=== PATIENT | female | born 1980 | race Caucasian/White ===

== ENCOUNTER → 2018-05-13 | Day surgery (SDC) | payer OTHER ==
[~2018-05-13] MED LIST: Bupivacaine 0.25% 30 ML SDV ONE; Lactated Ringers 1,000 ML IV SCH; Lidocaine 1% 30 ML SDV ONE; Lidocaine 1% 4 ML ONE; Lidocaine 1%/Sod Bicarbonate in NS 8.4% 1 ML Syringe IDERM PRN; Midazolam 1 MG/ML 2 ML SDV ONE; Ondansetron 4 MG/2 ML SDV ONE; Propofol 200 MG/20 ML SDV ONE; Sodium Chloride 0.9% 10 ML Syringe FLUSH PRN; fentaNYL 100 MCG/2 ML SDV ONE
--- NOTE | 2018-05-13 06:54 | PCM.PREANE ---
Preanesthetic Assessment - Anesthesia/Transfusion/Family Hx Anesthesia History: Prior Anesthesia Without Reaction Family History of Anesthesia Reaction: No Transfusion History: No Prior Transfusion(s) - Review of Systems General: No Symptoms Pulmonary: Cough (smokers) Cardiovascular: No Symptoms Gastrointestinal: No Symptoms Neurological: No Symptoms Other: Reports: Easy Bruising, Liver Problems (hep C) - Physical Assessment NPO Status Date: 05/12/18 NPO Status Time: 23:50 Pulse: 77 O2 Sat by Pulse Oximetry: 94 Respiratory Rate: 16 Blood Pressure: 114/87 Temperature: 36.6 C Vital Signs: Last Vital Signs Temp 36.6 C 05/13/18 06:44 Pulse 77 05/13/18 06:44 Resp 16 05/13/18 06:44 BP 114/87 05/13/18 06:44 Pulse Ox 94 L 05/13/18 06:44 Height: 1.55 m Weight: 76 kg ASA Class: 2 Mental Status: Alert & Oriented x3 Airway Class: Mallampati = 1 Dentition: Reports: Normal Dentition Thyro-Mental Finger Breadths: 3 Mouth Opening Finger Breadths: 3 ROM/Head Extension: Full Lungs: Clear to Auscultation, Normal Respiratory Effort Cardiovascular: Regular Rate, Regular Rhythm, No Murmurs - Lab Values: Laboratory Last Values Urine HCG, Qual Negative (NEGATIVE) 05/13/18 06:25 MRSA (PCR) Negative 05/11/18 11:09 - Allergies Allergies/Adverse Reactions: Allergies Allergy/AdvReac Type Severity Reaction Status Date / Time morphine AdvReac Nausea and Verified 05/12/18 13:45 Vomiting - Blood Blood Available: No Product(s) Available: None - Anesthesia Plan Pre-Op Medication Ordered: None - Acknowledgements Anesthesia Type Planned: MAC Pt an Appropriate Candidate for the Planned Anesthesia: Yes Alternatives and Risks of Anesthesia Discussed w Pt/Guardian: Yes Pt/Guardian Understands and Agrees with Anesthesia Plan: Yes PreAnesthesia Questionnaire HEENT History: Reports: Impaired Vision, Other (See Below) Other HEENT History: wears glasses Cardiovascular History: Reports: None Respiratory History: Reports: Asthma Gastrointestinal History: Reports: None, Hepatitis Genitourinary History: Reports: None 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 (See Below) Other OB/BYN History: breast surgeyr for fibroid tumor Musculoskeletal History: Reports: Other (See Below) Other Musculoskeletal History: bilateral carpal tunnel syndrome Neurological History: Reports: None Psychiatric History: Reports: None Endocrine/Metabolic History: Reports: None Hematologic History: Reports: None Immunologic History: Reports: None Oncologic (Cancer) History: Reports: None Dermatologic History: Reports: None - Past Surgical History Head Surgeries/Procedures: Reports: None HEENT Surgical History: Reports: None Cardiovascular Surgical History: Reports: None Respiratory Surgical History: Reports: None GI Surgical History: Reports: None Female Surgical History: Reports: None Male Surgical History: Reports: None Endocrine Surgical History: Reports: None Neurological Surgical History: Reports: None Musculoskeletal Surgical History: Reports: Other (See Below) Other Musculoskeletal Surgeries/Procedures:: knee surgery Oncologic Surgical History: Reports: None Dermatological Surgical History: Reports: None - SUBSTANCE USE Smoking Status *Q: Current Every Day Smoker Tobacco Use Within Last Twelve Months: Cigarettes Second Hand Smoke Exposure: No Days Per Week of Alcohol Use: 1 Number of Drinks Per Day: 1 Total Drinks Per Week: 1 Recreational Drug Use History: No - HOME MEDS Home Medications: Home Meds traMADol HCl [Ultram] 50 - 100 mg PO Q6H PRN #10 tablet 05/13/18 [Rx] - CURRENT (IN HOUSE) MEDS Current Meds: Current Medications Lactated Ringer's (Ringers, Lactated) 1,000 mls @ 125 mls/hr IV ASDIRECTED MARIUSZ Stop: 05/13/18 23:00 Lidocaine/Sodium Bicarbonate (Buffered Lidocaine 1% In Ns 8.4%) 0.25 ml IDERM ONETIME PRN PRN Reason: Prior to IV Start Stop: 05/13/18 18:00 Sodium Chloride (Saline Flush) 10 ml FLUSH ASDIRECTED PRN PRN Reason: Keep Vein Open Stop: 05/13/18 18:00
--- NOTE | 2018-05-13 22:03 | PCM.OPNOTE ---
- General Post-Op/Procedure Note Date of Surgery/Procedure: 05/13/18 Operative Procedure(s): left carpal tunnel release Pre Op Diagnosis: left median nerve compression neuropathy Post-Op Diagnosis: Same Anesthesia Technique: Local, MAC Primary Surgeon: Derrick Cao Anesthesia Provider: Michael Reddy Yard Supervisor Cotton Gin: Izabel Gusman EBL in mLs: 5 Complications: None Condition: Good Free Text/Narrative:: Intake & Output 05/13/18 05/13/18 05/13/18 06:59 14:59 22:59 Intake Total 100 Output Total 45 Balance -45 100
--- NOTE | 2018-05-13 23:15 | OR ---
DATE OF OPERATION: 05/13/2018 SURGEON: Derrick Cao MD OPERATION PERFORMED: Left carpal tunnel release. PREOPERATIVE DIAGNOSIS: Left median nerve compression neuropathy. POSTOPERATIVE DIAGNOSIS: Left median nerve compression neuropathy. ANESTHESIA: Anesthesia technique was local MAC. ANESTHESIA PROVIDER: None. LEARNING ADMINISTRATOR: Izabel Gusman PA-C. ESTIMATED BLOOD LOSS: Less than 5 mL. COMPLICATIONS: None. CONDITION: Stable. DESCRIPTION OF PROCEDURE: The patient was identified in the preop holding area. Proper site was marked and identified by the surgeon. The patient was taken back to the operating theater where after adequate anesthesia, the patient's left upper extremity was sterilely prepped and draped in the usual sterile fashion. OR time-out was performed. The patient received 2 grams of IV Ancef. At this time, left upper extremity had an Esmarch used as a tourniquet on the forearm. Lidocaine 1% without epinephrine and 0.25% Marcaine without epinephrine was used to anesthetize the palmar cutaneous branch of the median nerve as well as the incisional site using Devine's cardinal line and ulnar border of the fourth digit. Once this had set up, incision was made. Blunt dissection was taken down to the palmar cutaneous fascia. Palmar cutaneous fascia was incised with a Zuni blade. Transverse carpal ligament was identified. A small rent was made in the transverse carpal ligament and a tenotomy scissor was then used for release of transverse carpal ligament distally under direct visualization. It was found to be adequately released, stopping short at the palmar arch. At this time, attention was turned proximally and takedown to the superficial forearm fascia as well as the transverse carpal ligament was then done under direct visualization, making sure to keep the tips ulnar on the tenotomy scissors to protect the palmar cutaneous branch of the median nerve. At this time, it was found to be adequate released. Saline was irrigated through the wound. 4-0 nylon simple suture was used for closure of the skin. The patient was placed in a sterile soft dressing and sent to the PACU in stable condition. MMODAL /[id number]
== END | disposition home or self-care (01) ==
LOC: JD.SDS 06:14
PROVIDERS: ATTEND Orthopaedic Surgery
DX: G56.13 Other lesions of median nerve, bilateral upper limbs (principal); F17.210 Nicotine dependence, cigarettes, uncomplicated; Z88.5 Allergy status to narcotic agent
CPT/HCPCS: 01810; 81025; 87641; J2001; J2250; J2405; J2704; J3010; J3490; J7120

== ENCOUNTER 2018-07-17 19:40 | Emergency (ER) | payer OTHER ==
--- NOTE | 2018-07-17 20:02 | EDM.PDOC ---
ED HPI GENERAL MEDICAL PROBLEM - General Chief Complaint: Genitourinary Problem Stated Complaint: POSSIBLE UTI Time Seen by Provider: 07/17/18 19:55 Source of Information: Reports: Patient, RN Notes Reviewed - History of Present Illness INITIAL COMMENTS - FREE TEXT/NARRATIVE: 38 year old female with concern about possible UTI. There has been strong odor to her urine, also low back discomfort. She has had some voiding dysuria and frequency the past 2 days. Lower Back Pain Score (Numeric/FACES): 8 - Related Data Allergies Allergy/AdvReac Type Severity Reaction Status Date / Time morphine AdvReac Nausea and Verified 05/12/18 13:45 Vomiting Home Meds: Home Meds Nitrofurantoin Monohyd/M-Cryst [Macrobid 100 mg Capsule] 100 mg PO Q12HR #14 capsule 07/17/18 [Rx] Phenazopyridine [Pyridium] 200 mg PO BID PRN #6 tab 07/17/18 [Rx] Past Medical History HEENT History: Reports: Impaired Vision, Other (See Below) Other HEENT History: wears glasses Cardiovascular History: Reports: None Respiratory History: Reports: Asthma Gastrointestinal History: Reports: None, Hepatitis Genitourinary History: Reports: None RISK ANALYST History: Reports: Other (See Below) Other RISK ANALYST History: breast surgeyr for fibroid tumor Musculoskeletal History: Reports: Other (See Below) Other Musculoskeletal History: bilateral carpal tunnel syndrome Neurological History: Reports: None Psychiatric History: Reports: None Endocrine/Metabolic History: Reports: None Hematologic History: Reports: None Immunologic History: Reports: None Oncologic (Cancer) History: Reports: None Dermatologic History: Reports: None - Past Surgical History Head Surgeries/Procedures: Reports: None HEENT Surgical History: Reports: None Cardiovascular Surgical History: Reports: None Respiratory Surgical History: Reports: None GI Surgical History: Reports: None Female Surgical History: Reports: None Endocrine Surgical History: Reports: None Neurological Surgical History: Reports: None Musculoskeletal Surgical History: Reports: Other (See Below) Other Musculoskeletal Surgeries/Procedures:: knee surgery Oncologic Surgical History: Reports: None Dermatological Surgical History: Reports: None Social & Family History - Tobacco Use Smoking Status *Q: Current Every Day Smoker Years of Tobacco use: 15 Packs/Tins Daily: 1 - Caffeine Use Caffeine Use: Reports: Coffee, Soda, Tea - Recreational Drug Use Recreational Drug Use: Yes Recreational Drug Type: Reports: Marijuana/Hashish ED ROS GENERAL - Review of Systems Review Of Systems: See Below Constitutional: Reports: Chills. Denies: Fever HEENT: Reports: No Symptoms Respiratory: Denies: Shortness of Breath, Cough Cardiovascular: Denies: Chest Pain GI/Abdominal: Denies: Abdominal Pain, Nausea, Vomiting : Reports: Dysuria, Frequency, Urgency Musculoskeletal: Reports: Back Pain Skin: Reports: No Symptoms Neurological: Reports: No Symptoms ED EXAM, RENAL/ - Physical Exam Exam: See Below General Appearance: Alert, No Apparent Distress Throat/Mouth: Normal Inspection Head: No: Facial Swelling Neck: Supple Respiratory/Chest: No Respiratory Distress Cardiovascular: Regular Rate, Rhythm Back Exam: Other (mild tenderness R low back). No: CVA Tenderness (L), CVA Tenderness (R) Neurological: Alert, Oriented Course - Vital Signs Last Recorded V/S: Last Vital Signs Temp 98.7 F 07/17/18 19:51 Pulse 94 07/17/18 19:51 Resp 20 07/17/18 19:51 BP 147/81 H 07/17/18 19:51 Pulse Ox 97 07/17/18 19:51 - Orders/Labs/Meds Labs: Laboratory Tests 07/17/18 Range/Units 20:05 Urine Color Yellow (Yellow) Urine Appearance Slt cloudy H (Clear) Urine pH 6.5 (5.0-8.0) Ur Specific [place] 1.020 (1.005-1.030) Urine Protein Trace H (Negative) Urine Glucose (UA) Negative (Negative) Urine Ketones Negative (Negative) Urine Occult Blood 3+ H (Negative) Urine Nitrite Negative (Negative) Urine Bilirubin Negative (Negative) Urine Urobilinogen 0.2 (0.2-1.0) Ur Leukocyte Esterase 2+ H (Negative) Urine RBC 5-10 H (0-5) /hpf Urine WBC 10-20 H (0-5) /hpf Ur Epithelial Cells 0-5 (0-5) /hpf Urine Bacteria Moderate H (FEW) /hpf Urine Mucus Few (FEW) /hpf Departure - Departure Time of Disposition: 20:29 Disposition: Home, Self-Care 01 Condition: Fair Clinical Impression: UTI, Urinary tract infectious disease - Discharge Information Prescriptions: Nitrofurantoin Monohyd/M-Cryst [Macrobid 100 mg Capsule] 100 mg PO Q12HR #14 capsule Phenazopyridine [Pyridium] 200 mg PO BID PRN #6 tab PRN Reason: Dysuria Referrals: PCP,Unknown [Ordering Only Provider] - Forms: ED Department Discharge
== END 2018-07-17 20:45 | disposition home or self-care (01) ==
LOC: JD.ED 19:40
DX: N39.0 Urinary tract infection, site not specified (principal); F17.210 Nicotine dependence, cigarettes, uncomplicated; Z88.5 Allergy status to narcotic agent
CPT/HCPCS: 81001; 99283

== ENCOUNTER 2018-12-21 15:29 | Emergency (ER) | payer OTHER ==
--- NOTE | 2018-12-21 16:44 | CT ---
Head CT Technique: Multiple axial sections through the brain were obtained. Intravenous contrast was not utilized. Comparison: No prior intracranial imaging is available. Findings: Incidental calcification seen within the anterior interhemispheric falx. Small low-density finding is seen within the left basal ganglia most likely due to prominent perivascular space which is incidental. No other abnormal parenchymal densities are seen. No evidence of intracranial hemorrhage. No midline shift or mass effect is seen. Bone window settings were reviewed which shows no acute calvarial abnormality. Impression: 1. Nothing acute is seen on noncontrast head CT study. Diagnostic code #2
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
== END 2018-12-21 17:30 | disposition home or self-care (01) ==
LOC: JD.ED 15:29
DX: S06.0X0A Concussion without loss of consciousness, initial encounter (principal); J45.909 Unspecified asthma, uncomplicated; F17.210 Nicotine dependence, cigarettes, uncomplicated; Z91.018 Allergy to other foods; W18.2XXA Fall in (into) shower or empty bathtub, initial encounter
CPT/HCPCS: 70450; 70450-26; 99282; 99284-25

== ENCOUNTER 2019-07-09 13:56 | Emergency (ER) | payer OTHER ==
--- NOTE | 2019-07-09 14:20 | EDM.PDOC ---
ED HPI GENERAL MEDICAL PROBLEM - General Chief Complaint: Lower Extremity Injury/Pain Stated Complaint: L LEG CAST RECHECK Time Seen by Provider: 07/09/19 14:10 - History of Present Illness INITIAL COMMENTS - FREE TEXT/NARRATIVE: 38-year-old female presents emergency room to have her cast on her left foot replaced. This cast was put on at [facility] on Thursday 5 days ago. It is now broken down on the lateral aspect all the way to the heel. She is supposed to be absolutely nonweightbearing on this thing by obviously that is not the case the cast bottom is soaking wet. - Related Data Allergies Allergy/AdvReac Type Severity Reaction Status Date / Time mushroom Allergy Cannot Verified 07/09/19 14:06 Remember morphine AdvReac Nausea and Verified 07/09/19 14:06 Vomiting Home Meds: Home Meds Albuterol Sulfate [Proair Hfa] 8.5 gm IH PRN 12/21/18 [History] Epcusla. 07/09/19 [History] Viread. 07/09/19 [History] Past Medical History HEENT History: Reports: Impaired Vision, Other (See Below) Other HEENT History: wears glasses Cardiovascular History: Reports: None Respiratory History: Reports: Asthma Gastrointestinal History: Reports: None, Hepatitis Genitourinary History: Reports: None LITIGATION COUNSEL History: Reports: Other (See Below) Other LITIGATION COUNSEL History: breast surgeyr for fibroid tumor Musculoskeletal History: Reports: Other (See Below) Other Musculoskeletal History: bilateral carpal tunnel syndrome Neurological History: Reports: None Psychiatric History: Reports: None Endocrine/Metabolic History: Reports: None Hematologic History: Reports: None Immunologic History: Reports: None Oncologic (Cancer) History: Reports: None Dermatologic History: Reports: None - Infectious Disease History Infectious Disease History: Reports: Hepatitis C - Past Surgical History Head Surgeries/Procedures: Reports: None HEENT Surgical History: Reports: None Cardiovascular Surgical History: Reports: None Respiratory Surgical History: Reports: None GI Surgical History: Reports: None Female Surgical History: Reports: None Endocrine Surgical History: Reports: None Neurological Surgical History: Reports: None Musculoskeletal Surgical History: Reports: Arthroscopic Knee, Carpal Tunnel, Other (See Below) Other Musculoskeletal Surgeries/Procedures:: knee surgery Oncologic Surgical History: Reports: None Dermatological Surgical History: Reports: None Social & Family History - Family History Family Medical History: Noncontributory - Caffeine Use Caffeine Use: Reports: Coffee Review of Systems - Review of Systems Review Of Systems: See Below Constitutional: Reports: No Symptoms Respiratory: Reports: No Symptoms Cardiovascular: Reports: No Symptoms GI/Abdominal: Reports: No Symptoms ED EXAM, GENERAL - Physical Exam Exam: See Below Exam Limited By: No Limitations General Appearance: Alert, No Apparent Distress Respiratory/Chest: No Respiratory Distress, Lungs Clear, Normal Breath Sounds Cardiovascular: Regular Rate, Rhythm, No Edema, No Murmur Extremities: Other (Normal neurovascular status of the toes on the left foot her cast is absolutely destroyed there is no plantar rigidity left and it) Course - Vital Signs Last Recorded V/S: Last Vital Signs Temp 36.2 C 07/09/19 14:09 Pulse 105 H 07/09/19 14:09 Resp 17 07/09/19 14:09 BP Pulse Ox 100 07/09/19 14:09 - Orders/Labs/Meds Orders: Active Orders 24 hr Category Date Time Status Durable Medical Equipment for Discharge [DME for Oth 07/09/19 14:36 Ordered Discharge] [COMM] Stat - Re-Assessments/Exams Free Text/Narrative Re-Assessment/Exam: 07/09/19 15:05 I will not put a new cast on I am not certain what were treating or exactly what his broken it sounds like it was a delayed union probably a delayed diagnosis we do not have access to her old records over at [place] or old x- rays. I did discuss situation with Dr. Cao on-call orthopedics here and his recommendation was to cut the cast off and put a walking boot on as the cast is unsafe and unstable at this point. I did cut off the old cast no skin breakdown issues and applied a walking boot. I explained to the patient in absolutely no uncertain terms this is not an excuse to go walk on it she still must remain 100 % non-weight. Departure - Departure Time of Disposition: 15:07 Disposition: Home, Self-Care 01 Clinical Impression: Foot fracture, left - Discharge Information Referrals: PCP,None [Primary Care Provider] - Forms: ED Department Discharge, ED Return to Work/School Form Additional Instructions: Return to the emergency room with any questions problems. You must say 100% nonweightbearing on this left foot. You must follow-up at the [facility] on Thursday to have a new cast put on the boot you are in is a temporary fix because the other cast was destroyed. - My Orders Last 24 Hours: My Active Orders 07/09/19 14:36 Durable Medical Equipment for Discharge [DME for Discharge] [COMM] Stat - Assessment/Plan Last 24 Hours: My Active Orders 07/09/19 14:36 Durable Medical Equipment for Discharge [DME for Discharge] [COMM] Stat
== END 2019-07-09 15:27 | disposition home or self-care (01) ==
LOC: JD.ED 13:56
DX: S92.902A Unspecified fracture of left foot, initial encounter for closed fracture (principal); Z88.5 Allergy status to narcotic agent; Z91.018 Allergy to other foods; X58.XXXA Exposure to other specified factors, initial encounter
CPT/HCPCS: 99282

== ENCOUNTER 2019-10-16 17:36 | Emergency (ER) | payer OTHER ==
--- NOTE | 2019-10-16 18:02 | EDM.PDOC ---
ED HPI GENERAL MEDICAL PROBLEM - General Chief Complaint: General Stated Complaint: NAUSEA,HEAD PAIN, HIGH BLOOD PRESSURE Time Seen by Provider: 10/16/19 17:49 Source of Information: Reports: Patient History Limitations: Reports: No Limitations - History of Present Illness INITIAL COMMENTS - FREE TEXT/NARRATIVE: Patient's unfortunate 39-year-old female who presents today with complaint of nausea and head congestion. Patient reports that she also had high blood pressure at home her blood pressure was 140/90, the patient reports that she feels like she is having a side effect from the medication she was prescribed 3 days ago. Patient reports she has had sinus congestion and productive green sputum for the past week was seen by her PCP 3 days ago and was prescribed Zithromax and steroids. Patient reports she continues to have productive sputum and feels like "there is water running around in my head". Nausea no vomiting no fevers no chills no chest pain no shortness of breath - Related Data Allergies Allergy/AdvReac Type Severity Reaction Status Date / Time mushroom Allergy Cannot Verified 10/16/19 17:55 Remember morphine AdvReac Nausea and Verified 10/16/19 17:55 Vomiting Home Meds: Home Meds Tenofovir Disoproxil Fumarate [Viread] 300 mg PO DAILY 10/16/19 [History] Past Medical History HEENT History: Reports: Impaired Vision, Other (See Below) Other HEENT History: wears glasses Cardiovascular History: Reports: None Respiratory History: Reports: Asthma Gastrointestinal History: Reports: None, Hepatitis Genitourinary History: Reports: None 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 (See Below) 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: breast surgeyr for fibroid tumor Musculoskeletal History: Reports: Other (See Below) Other Musculoskeletal History: bilateral carpal tunnel syndrome Neurological History: Reports: None Psychiatric History: Reports: None Endocrine/Metabolic History: Reports: None Hematologic History: Reports: None Immunologic History: Reports: None Oncologic (Cancer) History: Reports: None Dermatologic History: Reports: None - Infectious Disease History Infectious Disease History: Reports: Hepatitis C - Past Surgical History Head Surgeries/Procedures: Reports: None HEENT Surgical History: Reports: None Cardiovascular Surgical History: Reports: None Respiratory Surgical History: Reports: None GI Surgical History: Reports: None Female Surgical History: Reports: None Endocrine Surgical History: Reports: None Neurological Surgical History: Reports: None Musculoskeletal Surgical History: Reports: Arthroscopic Knee, Carpal Tunnel, Other (See Below) Other Musculoskeletal Surgeries/Procedures:: knee surgery Oncologic Surgical History: Reports: None Dermatological Surgical History: Reports: None Social & Family History - Family History Family Medical History: Noncontributory - Tobacco Use Smoking Status *Q: Current Every Day Smoker Years of Tobacco use: 33 Packs/Tins Daily: 0.5 - Caffeine Use Caffeine Use: Reports: Soda - Recreational Drug Use Recreational Drug Use: No ED ROS GENERAL - Review of Systems Review Of Systems: See Below Constitutional: Denies: Fever, Chills HEENT: Reports: Rhinitis, Sinus Problem Respiratory: Reports: Cough, Sputum GI/Abdominal: Reports: Nausea. Denies: Vomiting ED EXAM, GENERAL - Physical Exam Exam: See Below Exam Limited By: No Limitations General Appearance: Alert, WD/WN, Mild Distress Ears: Normal External Exam, Normal Canal, Hearing Grossly Normal, Other ( Bilateral TMs dull) Nose: Normal Inspection, Normal Mucosa, No Blood Throat/Mouth: Other (Mild erythema posterior pharynx with postnasal drainage) Head: Atraumatic, Normocephalic Neck: Supple, Non-Tender, Other (Anterior cervical lymphadenopathy 2+ bilaterally) Respiratory/Chest: No Respiratory Distress, Lungs Clear, Normal Breath Sounds, No Accessory Muscle Use, Chest Non-Tender Cardiovascular: Normal Peripheral Pulses, Regular Rate, Rhythm, No Edema, No Gallop, No JVD, No Murmur, No Rub GI/Abdominal: Normal Bowel Sounds, Soft, Non-Tender, No Organomegaly, No Distention, No Abnormal Bruit, No Mass Extremities: Normal Inspection, Normal Range of Motion, Non-Tender, Normal Capillary Refill, No Pedal Edema Neurological: Alert Psychiatric: Normal Affect Skin Exam: Warm, Dry, No Rash Course - Vital Signs Last Recorded V/S: Last Vital Signs Temp 98.0 F 10/16/19 17:50 Pulse 100 10/16/19 17:50 Resp 16 10/16/19 17:50 BP 121/90 10/16/19 17:50 Pulse Ox 100 10/16/19 17:50 Departure - Departure Time of Disposition: 18:01 Disposition: Home, Self-Care 01 Condition: Good Clinical Impression: Acute sinusitis Qualifiers: Sinusitis location: unspecified location Recurrence: not specified as recurrent Qualified Code(s): J01.90 - Acute sinusitis, unspecified - Discharge Information Instructions: Sinusitis, Adult, [id number] Referrals: Joy Falcon MD [Primary Care Provider] - Additional Instructions: Home, rest, stop Zithromax, adequate fluids, return as needed for worsening condition Sepsis Event Note - Evaluation Sepsis Screening Result: No Definite Risk - Focused Exam Vital Signs: Vital Signs Temp Pulse Resp BP Pulse Ox 10/16/19 17:50 98.0 F 100 16 121/90 100 Date Exam was Performed: 10/16/19 Time Exam was Performed: 17:59
== END 2019-10-16 18:15 | disposition home or self-care (01) ==
LOC: JD.ED 17:36
DX: J01.90 Acute sinusitis, unspecified (principal); J45.909 Unspecified asthma, uncomplicated; F17.210 Nicotine dependence, cigarettes, uncomplicated; Z88.6 Allergy status to analgesic agent; Z91.018 Allergy to other foods
CPT/HCPCS: 99281; 99283